=== PATIENT | male | born 1960 | race Caucasian/White ===

== ENCOUNTER 2018-02-12 14:57 | Emergency (ER) | payer BC ==
[2018-02-12 15:06] VITALS: BP 146/89
[2018-02-12] MEDS ORDERED: Tetan/Diph/Pertus SYR(Tdap)* 0.5 ML SYR(BOOSTRIX) use SYR IM ONE ×2 (15:19→15:20)
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
== END 2018-02-12 15:30 | disposition home or self-care (01) ==
LOC: UCEAST 14:57
DX: T22.212A Burn of second degree of left forearm, initial encounter (principal); T31.0 Burns involving less than 10% of body surface; X08.8XXA Exposure to other specified smoke, fire and flames, initial encounter; Y93.9 Activity, unspecified; Y92.9 Unspecified place or not applicable; Z23 Encounter for immunization
CPT/HCPCS: 90471; 90715; 99212; G0463

== ENCOUNTER 2018-07-12 15:59 | Emergency (ER) | payer BC ==
[2018-07-12] MEDS ORDERED: NS 0.9% 1000 ML** 1,000 ML IV ONE (16:20)
[2018-07-12] MEDS ORDERED: ceFAZolin 1 GM ADVAN(*) 1 GM in NS 0.9% 50 ML* 50 ML IVPB ONE (16:22)
--- NOTE | 2018-07-12 16:26 | ED ---
Laceration/Wound HPI - HPI Summary HPI Summary: This patient is a 58 year old M presenting to [facility] with a chief complaint of left index finger laceration since just [employer]. The patient accidentally cut off his left index finger with a table saw. The patient rates the pain 8/10 in severity. He is UTD with Tetanus shots. NKDA. - History of Current Complaint Stated Complaint: LT POINTER FINGER LACERATION Hx Obtained From: Patient Onset/Duration: Sudden Onset, Lasting Minutes Current Severity: Severe Pain Intensity: 8 Pain Scale Used: 0-10 Numeric Associated Signs & Symptoms: Pain - Allergy/Home Medications Allergies/Adverse Reactions: Allergies Allergy/AdvReac Type Severity Reaction Status Date / Time No Known Allergies Allergy Verified 02/12/18 15:06 PMH/Surg Hx/FS Hx/Imm Hx Endocrine/Hematology History: Denies: Hx Diabetes, Hx Thyroid Disease Cardiovascular History: Denies: Hx Hypertension, Hx Pacemaker/ICD Respiratory History: Denies: Hx Asthma, Hx Chronic Obstructive Pulmonary Disease (COPD) GI History: Denies: Hx Ulcer History: Denies: Hx Renal Disease Musculoskeletal History: Denies: Hx Rheumatoid Arthritis, Hx Osteoporosis Sensory History: Denies: Hx Hearing Aid Psychiatric History: Denies: Hx Panic Disorder - Surgical History Surgery Procedure, Year, and Place: hernia repair, tonsillectomy. [id number] Infectious Disease History: No Infectious Disease History: Denies: Hx Hepatitis, Hx Human Immunodeficiency Virus (HIV), Traveled Outside the [place] in Last 30 Days - Family History Known Family History: Positive: Hypertension - Social History Alcohol Use: Occasionally Substance Use Type: Reports: None Smoking Status (MU): Never Smoked Tobacco Type: Cigars Review of Systems Positive: Decreased ROM - left index finger partially amputated Positive: Other - laceration and amputation of left index finger Positive: Numbness - left index fniger All Other Systems Reviewed And Are Negative: Yes Physical Exam - Summary Physical Exam Summary: Appearance: Well appearing, no pain distress Skin: warm, dry, reflects adequate perfusion Head/face: normal Eyes: EOMI, HELENA ENT: normal Neck: supple, non-tender Respiratory: CTA, breath sounds present Cardiovascular: RRR, pulses symmetrical Abdomen: non-tender, soft Musculoskeletal: Deep laceration/ partial amputation of the left index finger at the middle phalynx prox.mild range of motion present. Neuro: A&Ox3 Triage Information Reviewed: Yes Vital Signs On Initial Exam: Initial Vitals Temp Pulse Resp BP Pulse Ox 97.5 F 90 14 135/86 99 07/12/18 16:03 07/12/18 16:03 07/12/18 16:03 07/12/18 16:03 07/12/18 16:03 Vital Signs Reviewed: Yes Diagnostics - Vital Signs Vital Signs Temp Pulse Resp BP Pulse Ox 07/12/18 16:03 97.5 F 90 14 135/86 99 - Laboratory Result Diagrams: 07/12/18 17:51 Lab Statement: Any lab studies that have been ordered have been reviewed, and results considered in the medical decision making process. - Radiology Finger X Ray Radiology Interpretation Completed By: Radiologist Summary of Radiographic Findings: LIMITED SINGLE FRONTAL PROJECTION OF THE SECOND DIGIT DEMONSTRATES A TRANSVERSE FRACTURE. THROUGH THE BASE OF THE MIDDLE PHALANX. ED physician has reviewed this radiology report. - EKG 16:43 Cardiac Rate: NL - 71 bpm EKG Rhythm: Sinus Rhythm Summary of EKG Findings: QS in the inferior leads. Laceration Repair Course/Dx - Course Course Of Treatment: This patient is a 58 year old M presenting to [facility] with a chief complaint of left index finger laceration since just [employer]. The patient accidentally cut off his left index finger with a table saw. The patient rates the pain 8/10 in severity. An EKG reveals NSR 71 bpm with QS in inferior leads. Finger X ray reveals, per radiologist, LIMITED SINGLE FRONTAL PROJECTION OF THE SECOND DIGIT DEMONSTRATES A TRANSVERSE FRACTURE THROUGH THE BASE OF THE MIDDLE PHALANX. ED physician has reviewed this radiology report. In the ED course the patient was given Cefazolin, Ondansetron, Hydromorphone, Lidocaine, and IV fluids. Patient will be discharged with prescription for Cephalexin and Oxycodone and follow up from Dr. Boyd. The patient is agreeable with this plan. - Differential Dx Differental Diagnoses: Avulsion, Fracture, Tendon Laceration, Other - oprn fx/ partial amputation lf index finger - Clinical Impression Provider Diagnoses: Partial traumatic transphalangeal amputation of finger - Physician Notifications Discussed Care Of Patient With: Abimbola Boyd Time Discussed With Above Provider: 16:37 Instructed by Provider To: MD Will See In ED - Critical Care Time Critical Care Time: 30-74 min Discharge - Sign-Out/Discharge Documenting (check all that apply): Patient Departure - discharge Patient Received Moderate/Deep Sedation with Procedure: No - Discharge Plan Condition: Stable Disposition: HOME Prescriptions: cephALEXin [Keflex 750 MG] 750 mg PO BID #20 cap Oxycodone HCl/Acetaminophen [Percocet] 1 tab PO TID #15 tab MDD 3 Patient Education Materials: Finger Amputation (ED) Referrals: Abimbola Boyd MD [Medical Doctor] - Additional Instructions: Please follow up with Dr. Boyd within 2 days. - Billing Disposition and Condition Condition: STABLE Disposition: Home - Attestation Statements Document Initiated by Scribe: Yes Documenting Scribe: Terry Malik Provider For Whom Ricarda is Documenting (Include Credential): Darin Calloway MD Scribe Attestation: Terry Portillo, scribed for Darin Calloway MD on 07/12/18 at 1813. Scribe Documentation Reviewed: Yes Provider Attestation: The documentation as recorded by the Terry toledo accurately reflects the service I personally performed and the decisions made by Darin aggarwal MD Status of Scribe Document: Viewed
[2018-07-12] MEDS ORDERED: HYDROmorphone INJ1* 1 MG/ML SYRINGE IV SLOW PU ONE (16:30)
[2018-07-12] MEDS ORDERED: Ondansetron INJ* 2 MG/ML VIAL IV ONE (16:31)
[2018-07-12] MEDS ORDERED: Lidocaine 1% INJ* 10 MG/ML 30 ML SDV ONE (16:56)
[2018-07-12] MEDS ORDERED: Lidocaine 2% PF * 5 ML VIAL ONE (17:15)
[2018-07-12 18:00] LABS: ABS Basophils 0 10^3/ul (0-0.2); ABS Eosinophils 0.1 10^3/ul (0-0.6); ABS Lymphocytes 0.9 10^3/ul (1.0-4.8); ABS Monocytes 0.5 10^3/ul (0-0.8); ABS Neutrophils 6.2 10^3/ul (1.5-7.7); ABS Nucleated RBC 0 10^3/ul; Eosinophil % 0.9 %; Hematocrit 37 % (42-52); Hemoglobin 12.7 g/dl (14.0-18.0); Lymphocyte % 11.6 %; Mean Corpuscular HGB Conc 34 g/dl (31-36); Mean Corpuscular Hemoglobin 31 pg (27-31); Mean Corpuscular Volume 91 fL (80-94); Mean Platelet Volume 6.5 fL (7.4-10.4); Nucleated Red Blood Cells % 0.1; Platelet Count 280 10^3/ul (150-450); Red Blood Count 4.07 10^6/ul (4.00-5.40); Red Cell Distribution Width 12 % (10.5-15); White Blood Count 7.7 10^3/ul (3.5-10.8)
[2018-07-12 18:07] VITALS: BP 147/90
[2018-07-12 18:11] LABS: Activated Partial Thrombo Time 25.9 seconds (26.0-36.3); INR 0.96 (0.77-1.02)
[2018-07-12 18:18] LABS: Albumin 3.8 g/dL (3.2-5.2); Albumin/Globulin Ratio 1.8 (1-3); BUN/Creatinine Ratio 12.4 (8-20); Calcium 8.1 mg/dL (8.6-10.3); EGFR African American 106.2 (>60); EGFR Non-African American 87.8 (>60); Globulin 2.1 g/dL (2-4); Potassium 3.4 mmol/L (3.5-5.0); Total Bilirubin 0.4 mg/dL (0.2-1.0); Total Protein 5.9 g/dL (6.4-8.9)
--- NOTE | 2018-07-12 20:47 | CONS ---
CONSULTATION REPORT: DATE OF CONSULT: 07/12/18 - EMERGENCY DEPT CHIEF COMPLAINT: Left index finger injury. HISTORY OF PRESENT ILLNESS: Michael is a 58-year-old man who was using a table saw, working on a closet. He accidentally cut his left index finger. He cut through the middle phalanx and the distal portion of the finger is attached only by a very small dorsoradial skin bridge. The fingertip is not perfused, nor is it sensate. He has cut through the flexor and extensor tendon and has a comminuted fracture of the middle phalanx, which is evident on x-ray. PHYSICAL EXAM: He is a healthy-appearing man, in mild distress at rest. His left index finger has a laceration through the middle phalanx, again attached just with a small skin bridge. It is not sensate and it is not perfused. There is no capillary refill. It is not actively bleeding. Injury occurred about an hour and a half ago. IMPRESSION: Amputation of the left index finger through the base of the middle phalanx. PLAN: The patient was given a digital block with a total of 23 cc of 1% plain lidocaine. The amputation was revised. The middle phalanx was removed as was the articular surface of the proximal phalanx. The remaining mostly dorsal skin was used to close the defect. The flexor tendon retracted nicely. The finger was not actively bleeding through the digital arteries and the nerves had retracted as well. The amputation was revised and closed with 4-0 Prolene suture in interrupted fashion, was then dressed with Xeroform, 4x4, Allen and Coban. The patient was prescribed Keflex, was instructed to start taking that today. Also, was prescribed pain medication as needed, but can use ibuprofen if that is adequate pain control, and I will see him in followup on Saturday for dressing change and reevaluation. He was instructed to call if he has any problems between now and then. [id number]/[facility] #: [id number] JAZ
== END 2018-07-12 18:06 | disposition home or self-care (01) ==
LOC: ED 15:59
DX: S68.621A Partial traumatic transphalangeal amputation of left index finger, initial encounter (principal); W31.2XXA Contact with powered woodworking and forming machines, initial encounter; Y92.9 Unspecified place or not applicable
CPT/HCPCS: 36415; 73140; 80053; 85025; 85610; 85730; 93005; 96365; 96375; 99284; J0690; J1170; J2405